=== PATIENT | male | born 1970 | race Caucasian/White ===

== ENCOUNTER → 2024-03-09 14:42 | Outpatient (REF) | payer BC, SELFPAY | LOC: RCS 14:42 | PROVIDERS: ATTENDING PHYSICIAN Internal Medicine; FAMILY PHYSICIAN Internal Medicine | DX: I10 Essential (primary) hypertension (principal); E11.59 Type 2 diabetes mellitus with other circulatory complications; E78.2 Mixed hyperlipidemia; Z78.9 Other specified health status | CPT/HCPCS: 93306 ==

== ENCOUNTER → 2025-03-18 08:52 | Outpatient (REF) | payer BC, SELFPAY | LOC: RAD 08:52 | PROVIDERS: ATTENDING PHYSICIAN Internal Medicine | DX: E29.1 Testicular hypofunction (principal); M81.8 Other osteoporosis without current pathological fracture | CPT/HCPCS: 77080 ==

== ENCOUNTER → 2025-07-01 08:53 | Outpatient (REF) | payer BC, SELFPAY | LOC: RAD 08:53 | PROVIDERS: ATTENDING PHYSICIAN Internal Medicine | DX: N13.9 Obstructive and reflux uropathy, unspecified (principal); R94.5 Abnormal results of liver function studies; R10.9 Unspecified abdominal pain; N40.1 Benign prostatic hyperplasia with lower urinary tract symptoms | CPT/HCPCS: 76700; 76770 ==